=== PATIENT | male | born 1965 | race Caucasian/White ===

== ENCOUNTER → 2017-04-03 | Outpatient (CLI) | payer OTHER, BC ==
--- NOTE | 2017-04-06 10:12 | MR ---
EXAMINATION: MRI cervical spine HISTORY: Radiculopathy COMPARISON: Radiograph dated 11/14/2014 TECHNIQUE: Multiplanar and multisequence images obtained through the cervical spine without contrast . FINDINGS: The cervical spinal alignment is normal. The vertebral body heights and disc spaces appear well-maintained. There is no abnormal bone marrow signal. The cervical spinal cord signal is khurram l. The visualized intracranial compartments appear normal. The prevertebral soft tissues are normal. C2-C3: Unremarkable. C3-C4: Tiny diffuse disc bulge without significant spinal canal or neural foraminal stenosis. C4-C5: Tiny diffuse disc bulge without significant spinal canal or neural foraminal stenosis. C5-C6: Moderate diffuse disc bulge abutting the spinal cord with mild spinal canal stenosis. Mild to moderate right and mild left neural foraminal stenosis. C6-C7: Tiny diffuse disc bulge without significant spinal canal stenosis. Minimal bilateral neural f oraminal stenosis. C7-T1: Unremarkable. IMPRESSION: 1. Mild multilevel degenerative disc disease identified within the cervical spine with individual de tails above.
== END ==
LOC: MW.MRI 14:58
PROVIDERS: ATTEND Emergency Medicine
DX: M54.2 Cervicalgia (principal); M54.12 Radiculopathy, cervical region
CPT/HCPCS: 72141; 72141-26

== ENCOUNTER 2019-07-01 07:38 | Day surgery (SDC) | payer BC ==
[~2019-07-01 07:38] MED LIST: Lactated Ringers 1,000 ML IV SCH; Sodium Chloride 0.9% 10 ML SDV IV PRN; Sodium Chloride 0.9% 10 ML Syringe FLUSH PRN; Sodium Chloride 0.9% 2.5 ML Syringe FLUSH PRN
--- NOTE | 2019-07-01 08:52 | PCM.PREANE ---
Preanesthetic Assessment - Anesthesia/Transfusion/Family Hx Anesthesia History: No Prior Anesthesia Family History of Anesthesia Reaction: No Transfusion History: No Prior Transfusion(s) Intubation History: Unknown - Review of Systems General: No Symptoms, Night Sweats Cardiovascular: No Symptoms Gastrointestinal: No Symptoms, Other (cologuard test positive) Neurological: No Symptoms Other: Reports: None - Physical Assessment O2 Sat by Pulse Oximetry: 97 Respiratory Rate: 14 Vital Signs: Last Vital Signs Temp 36 C 07/01/19 08:28 Pulse 80 07/01/19 08:28 Resp 14 07/01/19 08:28 BP 136/80 07/01/19 08:28 Pulse Ox 97 07/01/19 08:28 Height: 5 ft 11 in Weight: 100.698 kg ASA Class: 2 Airway Class: Mallampati = 2 Dentition: Reports: Normal Dentition Thyro-Mental Finger Breadths: 3 Mouth Opening Finger Breadths: 3 ROM/Head Extension: Full Lungs: Clear to Auscultation, Normal Respiratory Effort Cardiovascular: Regular Rate, Regular Rhythm - Allergies Allergies/Adverse Reactions: Allergies Allergy/AdvReac Type Severity Reaction Status Date / Time No Known Allergies Allergy Verified 06/29/19 09:45 - Blood Blood Available: No - Anesthesia Plan Pre-Op Medication Ordered: None - Acknowledgements Anesthesia Type Planned: MAC Pt an Appropriate Candidate for the Planned Anesthesia: Yes Alternatives and Risks of Anesthesia Discussed w Pt/Guardian: Yes Pt/Guardian Understands and Agrees with Anesthesia Plan: Yes PreAnesthesia Questionnaire HEENT History: Reports: None Cardiovascular History: Reports: High Cholesterol, Hypertension Respiratory History: Reports: None Gastrointestinal History: Reports: None Genitourinary History: Reports: Renal Calculus Musculoskeletal History: Reports: Back Pain, Chronic, Fracture, Neck Pain, Chronic (cervicalgia, cervical spinal stenosis, cervical radiculopathy, cervical facet syndrome and disc disease) Other Musculoskeletal History: hx fx hand Neurological History: Reports: Migraines, Other (See Below) (neuropathic pain) Psychiatric History: Reports: Depression Endocrine/Metabolic History: Reports: Diabetes, Type II, Obesity/BMI 30+ Hematologic History: Reports: None Immunologic History: Reports: None Oncologic (Cancer) History: Reports: None Dermatologic History: Reports: None - Past Surgical History Head Surgeries/Procedures: Reports: None HEENT Surgical History: Reports: None Cardiovascular Surgical History: Reports: None Respiratory Surgical History: Reports: None GI Surgical History: Reports: None Male Surgical History: Reports: Vasectomy Endocrine Surgical History: Reports: None Neurological Surgical History: Reports: None Musculoskeletal Surgical History: Reports: None Oncologic Surgical History: Reports: None Dermatological Surgical History: Reports: None - SUBSTANCE USE Smoking Status *Q: Never Smoker Tobacco Use Within Last Twelve Months: Snuff/Dip - HOME MEDS Home Medications: Home Meds Aspirin [Lo-Dose Aspirin EC] 81 mg PO DAILY 06/29/19 [History] Canagliflozin [Invokana] 100 mg PO DAILY 06/29/19 [History] Escitalopram Oxalate 20 mg PO DAILY 06/29/19 [History] Losartan Potassium 25 mg PO DAILY 06/29/19 [History] Naproxen Sodium [Aleve] 1 tab PO ASDIRECTED PRN 06/29/19 [History] Pravastatin Sodium 10 mg PO DAILY 06/29/19 [History] - CURRENT (IN HOUSE) MEDS Current Meds: Current Medications Lactated Ringer's (Ringers, Lactated) 1,000 mls @ 125 mls/hr IV ASDIRECTED DEL Last Admin: 07/01/19 08:34 Dose: 125 mls/hr Sodium Chloride (Saline Flush) 10 ml FLUSH ASDIRECTED PRN PRN Reason: Keep Vein Open Sodium Chloride (Saline Flush) 2.5 ml FLUSH ASDIRECTED PRN PRN Reason: Keep Vein Open Sodium Chloride (Saline Flush) 10 ml FLUSH ASDIRECTED PRN PRN Reason: Keep Vein Open Sodium Chloride (Saline Flush) 2.5 ml FLUSH ASDIRECTED PRN PRN Reason: Keep Vein Open Sodium Chloride (Normal Saline) 10 ml IV ASDIRECTED PRN PRN Reason: IV Use
[2019-07-01] MEDS ORDERED: Propofol 200 MG/20 ML SDV ONE (09:57)
[2019-07-01] MEDS ORDERED: fentaNYL 100 MCG/2 ML SDV ONE (09:57)
[2019-07-01] MEDS ORDERED: Lidocaine 2% 5 ML SDV ONE (09:57)
[2019-07-01 11:23] VITALS: BP 114/64; PULSE 62
--- NOTE | 2019-07-01 12:28 | PCM.OPNOTE ---
- General Post-Op/Procedure Note Date of Surgery/Procedure: 07/01/19 Operative Procedure(s): Diagnostic Colonoscopy Findings: Sigmoid colon polyp, diverticulosis Pre Op Diagnosis: Positive cologuard test Post-Op Diagnosis: Sigmoid colon polyp, diverticulosis [place]est[place] [facility] [place] Surgeon: Lauren Barajas Condition: Good Free Text/Narrative:: Intake & Output 06/30/19 07/01/19 07/01/19 22:59 06:59 14:59 Intake Total 1000 Balance 1000
--- NOTE | 2019-07-01 20:38 | OR ---
SURGEON: LAUREN BARAJAS MD DATE OF PROCEDURE: 07/01/2019 PREOPERATIVE DIAGNOSIS: Positive Cologuard test. POSTOPERATIVE DIAGNOSES: 1. Sigmoid colon polyp. 2. Diverticulosis. PROCEDURE PERFORMED: Diagnostic colonoscopy. PRIMARY SURGEON: Lauren Barajas MD. ANESTHESIA: MAC. INSTRUMENT USED: Olympus colonoscope. EXTENT OF EXAM: To the cecum. PREPARATION: Good. LIMITATIONS: None. INDICATION FOR EXAMINATION: The patient is a 54-year-old male who recently had a positive Cologuard test. I explained the need for a diagnostic colonoscopy. I explained the procedure, expected perioperative course, and risks including bleeding, infection, or damage to surrounding structures including perforation. The patient verbalized understanding and wishes to proceed. PROCEDURE IN DETAIL: The patient was brought to the endoscopy suite and placed in a left lateral decubitus position. A time-out was completed verifying the patient's name, age, date of , allergies, and procedure to be performed. Monitored anesthesia care was induced and continuous oxygen was provided via nasal cannula throughout the procedure. After adequate sedation was achieved, a digital rectal exam was performed. This exam was within normal limits. A well lubricated colonoscope was inserted into the rectum and advanced under direct visualization to the level of the cecum. The cecum was identified by both visual and anatomic landmarks. A photograph was taken of the cecal cap; however, I was unable to retroflex the scope within the cecum due to looping of the scope more proximally. The scope was then fully withdrawn while examining the color, texture, anatomy, and integrity of the mucosa from the cecum to the anal canal. The findings were consistent with diverticulosis throughout the sigmoid colon. In the very distal sigmoid, there was a small sessile polyp. This was removed in piecemeal fashion using a cold biopsy forceps. The scope was then brought into the rectum and retroflexed to allow visualization of the anal canal opening. This appeared normal and a photograph was taken. The scope was then straightened out and fully withdrawn. The cecum to anus time was 8 minutes. The patient tolerated the procedure well and was taken to the PACU in stable condition. ENDOSCOPIC DIAGNOSES: 1. Sigmoid colon polyp. 2. Diverticulosis. RECOMMENDATIONS: Follow up in clinic in 2 weeks. FILIBERTO / MATTHEW /[id number]
== END 2019-07-01 11:24 | disposition home or self-care (01) ==
LOC: MW.SDS 07:38
PROVIDERS: ATTEND Surgery
DX: K63.5 Polyp of colon (principal); K57.30 Diverticulosis of large intestine without perforation or abscess without bleeding; I10 Essential (primary) hypertension; E11.9 Type 2 diabetes mellitus without complications; E78.00 Pure hypercholesterolemia, unspecified; Z79.82 Long term (current) use of aspirin; Z79.899 Other long term (current) drug therapy
CPT/HCPCS: 45380; 88305; J2001; J2704; J3010; J7120

== ENCOUNTER 2021-12-30 15:15 | Emergency (ER) | payer BC, OTHER ==
[2021-12-30] MEDS ORDERED: Diphtheria,Pertussis(Acell),Tetanus Vaccine 0.5 ML Syringe IM ONE (15:24)
[2021-12-30] MEDS ORDERED: Cephalexin 500 MG Cap PO ONE (17:10)
[2021-12-30] MEDS ORDERED: traMADol 50 MG Tab PO ONE (17:10)
[2021-12-30 17:38] VITALS: BP 138/83; PULSE 86
== END 2021-12-30 17:38 | disposition home or self-care (01) ==
LOC: MW.ED 15:15
DX: S81.012A Laceration without foreign body, left knee, initial encounter (principal); E78.00 Pure hypercholesterolemia, unspecified; I10 Essential (primary) hypertension; E11.9 Type 2 diabetes mellitus without complications; E66.9 Obesity, unspecified; Z68.30 Body mass index [BMI] 30.0-30.9, adult; Z79.82 Long term (current) use of aspirin; Z79.899 Other long term (current) drug therapy; W29.3XXA Contact with powered garden and outdoor hand tools and machinery, initial encounter
CPT/HCPCS: 12002; 73562; 90471; 90715; 99283; A9270

== ENCOUNTER 2025-04-11 08:04 | Day surgery (SDC) | payer OTHER ==
[~2025-04-11 08:04] MED LIST changes: -Lactated Ringers 1,000 ML IV SCH; -Sodium Chloride 0.9% 10 ML SDV IV PRN; +Sodium Chloride 0.9% 20 ML SDV IV PRN
[2025-04-11] MEDS: Lactated Ringers 1,000 ML IV SCH (09:00)
[2025-04-11] MEDS ORDERED: Propofol 200 MG/20 ML SDV ONE (10:00)
[2025-04-11] MEDS ORDERED: Lidocaine 2% 5 ML SDV ONE (10:00)
[2025-04-11 12:58] VITALS: BP 137/83; PULSE 55
== END 2025-04-11 11:18 | disposition home or self-care (01) ==
LOC: MW.SDS 08:04
PROVIDERS: ATTEND Surgery
DX: K29.50 Unspecified chronic gastritis without bleeding (principal); K31.89 Other diseases of stomach and duodenum; K44.9 Diaphragmatic hernia without obstruction or gangrene; K21.9 Gastro-esophageal reflux disease without esophagitis; K22.89 Other specified disease of esophagus; E66.9 Obesity, unspecified; E11.9 Type 2 diabetes mellitus without complications; I10 Essential (primary) hypertension; F17.200 Nicotine dependence, unspecified, uncomplicated; Z68.31 Body mass index [BMI] 31.0-31.9, adult; Z79.899 Other long term (current) drug therapy
CPT/HCPCS: 43239; J2003; J2704; J7120; 00731